=== PATIENT | female | born 1995 | race African-American/Black ===

== ENCOUNTER 2016-11-07 23:54 | Emergency (ER) | payer MEDICAID ==
[~2016-11-07] VITALS: Ht 157.5 cm; Wt 50.0 kg
[2016-11-08 00:45] VITALS: BP 127/79
[2016-11-08] MEDS ORDERED: IBUPROFEN 600MG TABLET PO ONE (00:45)
== END 2016-11-08 00:52 | disposition home or self-care (01) ==
LOC: ER 23:55
DX: H66.91 Otitis media, unspecified, right ear (principal)
CPT/HCPCS: 99283; Z7610

== ENCOUNTER 2017-04-19 18:17 | Emergency (ER) | payer MEDICAID ==
[~2017-04-19] VITALS: Ht 157.5 cm; Wt 50.0 kg
[2017-04-19 22:28] VITALS: BP 128/83
== END 2017-04-20 | disposition left against medical advice (07) ==
LOC: ER 18:17
DX: Z53.21 Procedure and treatment not carried out due to patient leaving prior to being seen by health care provider (principal)
CPT/HCPCS: 81025

== ENCOUNTER 2018-10-03 16:33 | Emergency (ER) | payer OTHER ==
[~2018-10-03] VITALS: Ht 154.9 cm; Wt 53.0 kg
[~2018-10-03 16:33] MED LIST: ONDA4TAB5 PO
[2018-10-03] MEDS ORDERED: SODIUM CHLORIDE 0.9% 1,000 ML IV ONE (21:16)
[2018-10-03] MEDS ORDERED: ONDANSETRON HCL 4MG/2ML INJ IV STA (21:16)
[2018-10-03 22:07] LABS: CLARITY URINE CLEAR (CLEAR); COLOR URINE DARK YELLOW (YELLOW); KETONES URINE 4+ (NEGATIVE); LEUKOCYTE ESTERASE URINE TRACE (NEGATIVE); NITRITE URINE NEGATIVE (NEGATIVE); OCCULT BLOOD URINE 1+ (NEGATIVE); PH URINE 6.5 (4.5-8.0); PROTEIN URINE TRACE (NEGATIVE); SPECIFIC GRAVITY URINE 1.027 (1.005-1.030)
[2018-10-03 22:51] LABS: EOSINOPHILS % 0.3 % (0.0-5.0); HEMATOCRIT. 47.4 % (36.0-48.0); HEMOGLOBIN. 16.4 g/dL (12.0-16.0); LYMPHOCYTES % 23.1 % (20.0-50.0); MEAN CORPUSCULAR VOLUME 92.4 fL (81.0-99.0); MEAN PLATELET VOLUME 8.9 fl (7.4-10.4); MONOCYTES % 8.2 % (2.0-8.0); NEUTROPHILS % 67.4 % (40.0-76.0); PLATELET 386 x1000/uL (130-400); RED BLOOD CELL COUNT 5.13 mill/uL (4.2-5.4); RED CELL DISTRIBUTION WIDTH 13.2 % (11.6-14.6)
[2018-10-03 22:54] LABS: CHLORIDE 100 mEq/L (98-107)
[2018-10-03] MEDS ORDERED: CEFTRIAXONE 1 G PREMIX 50 ML IV SCH (23:00)
[2018-10-03 23:13] LABS: HCG SCREEN NEGATIVE
[2018-10-03] MEDS ORDERED: POTASSIUM CHLORIDE 20MEQ TABLET SR PO ONE (23:45)
[2018-10-04 00:27] VITALS: BP 120/77
== END 2018-10-04 00:30 | disposition home or self-care (01) ==
LOC: ER 16:33
DX: N39.0 Urinary tract infection, site not specified (principal); R11.2 Nausea with vomiting, unspecified; E87.6 Hypokalemia; Z90.49 Acquired absence of other specified parts of digestive tract
CPT/HCPCS: 36415; 80053; 81003; 81025; 83690; 84703; 85025; 96361; 96365; 96375; 99283; J0696; J2405; J7030; Z7610

== ENCOUNTER 2019-02-09 17:02 | Emergency (ER) | payer OTHER ==
[~2019-02-09] VITALS: Ht 157.5 cm; Wt 55.0 kg
[2019-02-09 17:08] VITALS: BP 117/73
[2019-02-09 17:57] LABS: CLARITY URINE CLEAR (CLEAR); COLOR URINE YELLOW (YELLOW); KETONES URINE 1+ (NEGATIVE); LEUKOCYTE ESTERASE URINE NEGATIVE (NEGATIVE); NITRITE URINE NEGATIVE (NEGATIVE); OCCULT BLOOD URINE 1+ (NEGATIVE); PROTEIN URINE NEGATIVE (NEGATIVE); SPECIFIC GRAVITY URINE 1.027 (1.005-1.030); UROBILINOGEN URINE 0.2 E.U./dL (0.2-1.0)
== END 2019-02-09 19:05 | disposition home or self-care (01) ==
LOC: ER 17:02
DX: M25.512 Pain in left shoulder (principal); X50.3XXA Overexertion from repetitive movements, initial encounter; Y93.89 Activity, other specified; Y92.9 Unspecified place or not applicable
CPT/HCPCS: 73030; 81025; 99284

== ENCOUNTER 2019-02-12 22:19 | Emergency (ER) | payer OTHER ==
[~2019-02-12] VITALS: Ht 157.5 cm; Wt 54.4 kg
[2019-02-12 22:24] VITALS: BP 113/84
[2019-02-13] MEDS ORDERED: KETOROLAC 60MG/2ML VIAL IM ONE
[2019-02-13] MEDS ORDERED: ACETAMINOPHEN 325MG TABLET PO ONE
== END 2019-02-13 01:32 | disposition home or self-care (01) ==
LOC: ER 22:19
DX: H66.91 Otitis media, unspecified, right ear (principal); R50.9 Fever, unspecified; Z90.49 Acquired absence of other specified parts of digestive tract
CPT/HCPCS: 81025; 96372; 99283; J1885; Z7610

== ENCOUNTER 2019-02-21 14:58 | Emergency (ER) | payer OTHER ==
[~2019-02-21] VITALS: Ht 157.5 cm; Wt 53.0 kg
[2019-02-21 18:27] VITALS: BP 98/55
== END 2019-02-21 18:29 | disposition home or self-care (01) ==
LOC: ER 14:58
DX: L03.012 Cellulitis of left finger (principal); B00.9 Herpesviral infection, unspecified; Z90.49 Acquired absence of other specified parts of digestive tract
CPT/HCPCS: 99283

== ENCOUNTER 2019-12-03 04:19 | Observation (INO) | payer OTHER ==
[~2019-12-03] VITALS: Ht 157.5 cm; Wt 57.2 kg
[2019-12-03] MEDS ORDERED: PREN1TAB78 PO (05:12)
[2019-12-03] MEDS ORDERED: ONDANSETRON HCL 4MG/2ML INJ IV NR (05:45)
[2019-12-03] MEDS: LACTATED RINGERS 1,000 ML IV SCH ×2 (06:02→07:17)
[2019-12-03 06:42] LABS: HEMATOCRIT. 37.7 % (36.0-48.0); MEAN CORPUSCULAR HEMOGLOBIN 32.5 pg (28.0-32.0); MEAN CORPUSCULAR VOLUME 94.2 fL (81.0-99.0); MEAN PLATELET VOLUME 10.1 fl (7.4-10.4); PLATELET 296 x1000/uL (130-400); RED CELL DISTRIBUTION WIDTH 14.1 % (11.6-14.6)
[2019-12-03 06:48] LABS: CLARITY URINE CLOUDY (CLEAR); COLOR URINE DARK YELLOW (YELLOW); KETONES URINE 4+ (NEGATIVE); LEUKOCYTE ESTERASE URINE 1+ (NEGATIVE); NITRITE URINE NEGATIVE (NEGATIVE); OCCULT BLOOD URINE 3+ (NEGATIVE); PH URINE 5.5 (4.5-8.0); PROTEIN URINE 3+ (NEGATIVE); SPECIFIC GRAVITY URINE 1.029 (1.005-1.030)
[2019-12-03 06:49] LABS: CHLORIDE 110 mEq/L (98-107)
[2019-12-03] MEDS ORDERED: BISACODYL 10MG SUPP PR ONE (08:45)
[2019-12-03 11:45] LABS: PLATELET ESTIMATE NORMAL
[2019-12-04] MEDS ORDERED: ONDA4TAB5 MT (00:52)
[2019-12-04] MEDS ORDERED: DOCU-138 MT (00:52)
== END 2019-12-03 14:40 | disposition home or self-care (01) ==
LOC: 8 EST LDRP 04:19
PROVIDERS: ADMIT Obstetrics & Gynecology; ATTEND Obstetrics & Gynecology
DX: O21.2 Late vomiting of pregnancy (principal); O26.893 Other specified pregnancy related conditions, third trimester; K59.00 Constipation, unspecified; Z3A.28 28 weeks gestation of pregnancy
CPT/HCPCS: 36415; 80053; 81003; 85025; 96361; 96374; 99281; G0378; J2405; 96360; J7120

== ENCOUNTER 2019-12-03 22:48 | Observation (INO) | payer OTHER ==
[~2019-12-03] VITALS: Ht 157.5 cm; Wt 57.2 kg
[~2019-12-03 22:48] MED LIST changes: +PREN1TAB78 PO
[2019-12-04] MEDS ORDERED: FAMOTIDINE 20MG/2ML VIAL IV NR (00:15)
[2019-12-04] MEDS ORDERED: ONDANSETRON HCL 4MG/2ML INJ IV NR (00:15)
[2019-12-04] MEDS ORDERED: DOCU-138 MT (00:52)
[2019-12-04] MEDS ORDERED: ONDA4TAB5 MT (00:52)
[2019-12-04] MEDS ORDERED: LACTATED RINGERS 1,000 ML IV SCH (01:00)
== END 2019-12-04 01:30 | disposition home or self-care (01) ==
LOC: ER 22:48 → 8 EST LDRP 22:49
PROVIDERS: ADMIT Obstetrics & Gynecology; ATTEND Obstetrics & Gynecology
DX: O21.2 Late vomiting of pregnancy (principal); Z20.828 Contact with and (suspected) exposure to other viral communicable diseases; O26.893 Other specified pregnancy related conditions, third trimester; R10.9 Unspecified abdominal pain; Z3A.28 28 weeks gestation of pregnancy; Z90.49 Acquired absence of other specified parts of digestive tract
CPT/HCPCS: 87635; 96374; 96375; 99284; G0378; J2405; J3490; 96360; 99281

== ENCOUNTER 2019-12-07 16:02 | Observation (INO) | payer OTHER ==
[~2019-12-07] VITALS: Ht 157.5 cm; Wt 55.8 kg
[~2019-12-07 16:02] MED LIST changes: +DOCU-138 MT; +ONDA4TAB5 MT
[2019-12-07] MEDS ORDERED: LACTATED RINGERS 1,000 ML IV SCH (16:45)
[2019-12-07] MEDS ORDERED: ONDANSETRON HCL 4MG/2ML INJ IV NR (16:45)
== END 2019-12-07 17:55 | disposition home or self-care (01) ==
LOC: 8 EST LDRP 16:02
PROVIDERS: ADMIT Obstetrics & Gynecology; ATTEND Obstetrics & Gynecology
DX: O21.2 Late vomiting of pregnancy (principal); O26.893 Other specified pregnancy related conditions, third trimester; K21.9 Gastro-esophageal reflux disease without esophagitis; R42 Dizziness and giddiness; R10.13 Epigastric pain; Z3A.29 29 weeks gestation of pregnancy
CPT/HCPCS: 96374; 99281; G0378; J2405; 96360

== ENCOUNTER 2019-12-21 14:31 | Observation (INO) | payer OTHER ==
[~2019-12-21 14:31] MED LIST changes: -ONDA4TAB5 PO
[2019-12-21 16:22] LABS: CLARITY URINE TURBID (CLEAR); COLOR URINE ORANGE (YELLOW); KETONES URINE 1+ (NEGATIVE); LEUKOCYTE ESTERASE URINE 1+ (NEGATIVE); NITRITE URINE NEGATIVE (NEGATIVE); OCCULT BLOOD URINE 3+ (NEGATIVE); PH URINE 8.5 (4.5-8.0); PROTEIN URINE 1+ (NEGATIVE); SPECIFIC GRAVITY URINE 1.019 (1.005-1.030)
== END 2019-12-21 17:20 | disposition home or self-care (01) ==
LOC: 8 EST LDRP 14:31
PROVIDERS: ADMIT Obstetrics & Gynecology; ATTEND Obstetrics & Gynecology
DX: O62.9 Abnormality of forces of labor, unspecified (principal); O46.93 Antepartum hemorrhage, unspecified, third trimester; O21.2 Late vomiting of pregnancy; O26.893 Other specified pregnancy related conditions, third trimester; R10.9 Unspecified abdominal pain; Z3A.31 31 weeks gestation of pregnancy
CPT/HCPCS: 81003; 82731; 99281; G0378; 96360

== ENCOUNTER 2019-12-26 13:22 | Observation (INO) | payer OTHER ==
[~2019-12-26] VITALS: Ht 157.5 cm; Wt 57.2 kg
[2019-12-26] MEDS ORDERED: ACETAMINOPHEN WITH CODEINE 300/30MG TABLET PO SCH ×2 (14:00→22:33)
[2019-12-26] MEDS: LACTATED RINGERS 1,000 ML IV SCH ×2 (14:37→17:26)
[2019-12-26] MEDS: ONDANSETRON HCL 4MG/2ML INJ IV PRN (14:37)
[2019-12-26 14:58] LABS: CHLORIDE 105 mEq/L (98-107)
[2019-12-26 15:05] LABS: HEMATOCRIT. 35.8 % (36.0-48.0); HEMOGLOBIN. 12.2 g/dL (12.0-16.0); MEAN CORPUSCULAR HEMOGLOBIN 32.4 pg (28.0-32.0); MEAN CORPUSCULAR VOLUME 95.3 fL (81.0-99.0); PLATELET 311 x1000/uL (130-400); RED BLOOD CELL COUNT 3.76 mill/uL (4.2-5.4); RED CELL DISTRIBUTION WIDTH 13.8 % (11.6-14.6)
[2019-12-26 17:39] LABS: PLATELET ESTIMATE NORMAL
[2019-12-26] MEDS ORDERED: BUTORPHANOL TARTRATE 2 MG/ML VIAL IM PRN (18:30)
[2019-12-26 19:58] LABS: CLARITY URINE CLEAR (CLEAR); COLOR URINE YELLOW (YELLOW); KETONES URINE 4+ (NEGATIVE); LEUKOCYTE ESTERASE URINE 1+ (NEGATIVE); NITRITE URINE NEGATIVE (NEGATIVE); OCCULT BLOOD URINE TRACE (NEGATIVE); PH URINE 6.5 (4.5-8.0); PROTEIN URINE 1+ (NEGATIVE); SPECIFIC GRAVITY URINE 1.026 (1.005-1.030)
[2019-12-26] MEDS ORDERED: FOLIC ACID 1 MG, MVI, ADULT NO.1 10 ML in DEXTROSE 5% WATER 1,000 ML IV NR ×3 (20:00)
[2019-12-26] MEDS ORDERED: THIAMINE HCL 100MG TABLET PO NR (20:00)
[2019-12-26 22:40] VITALS: BP 109/55
[2019-12-27] MEDS: LACTATED RINGERS 1,000 ML IV SCH (03:49)
[2019-12-27] MEDS: ONDANSETRON HCL 4MG/2ML INJ IV PRN (07:55)
== END 2019-12-27 09:40 | disposition home or self-care (01) ==
LOC: 8 EST LDRP 13:22
PROVIDERS: ADMIT Obstetrics & Gynecology; ATTEND Obstetrics & Gynecology
DX: O62.9 Abnormality of forces of labor, unspecified (principal); O36.8330 Maternal care for abnormalities of the fetal heart rate or rhythm, third trimester, not applicable or unspecified; O99.89 Other specified diseases and conditions complicating pregnancy, childbirth and the puerperium; M54.9 Dorsalgia, unspecified; O26.893 Other specified pregnancy related conditions, third trimester; R11.0 Nausea; Z3A.32 32 weeks gestation of pregnancy
CPT/HCPCS: 36415; 76770; 80053; 81003; 85025; 96361; 96365; 96366; 96372; 96375; 96376; 99281; G0378; J0595; J2405; J3490; J7070; 96360

== ENCOUNTER 2020-02-20 12:33 | Inpatient (IN) | payer OTHER ==
[~2020-02-20] VITALS: Ht 165.1 cm; Wt 82.6 kg
[2020-02-20] MEDS ORDERED: DEXT 5%/LR + PITOCIN 20UNITS/L 1,000 ML IV SCH (14:29)
[2020-02-20] MEDS ORDERED: METHYLERGONOVINE MALEATE 0.2 MG/ML IM PRN (14:30)
[2020-02-20] MEDS ORDERED: CARBOPROST TROMETHAMINE 250 MCG/ML AMPUL IM PRN (14:30)
[2020-02-20] MEDS ORDERED: NALOXONE HCL 0.4 MG/ML 1ML VIAL IM PRN (14:30)
[2020-02-20] MEDS ORDERED: LIDOCAINE HCL 1% 20ML VIAL (Pyxis) INJ INFIL SCH (14:30)
[2020-02-20] MEDS: LACTATED RINGERS 1,000 ML IV SCH (14:45)
[2020-02-20 15:16] LABS: CLARITY URINE CLOUDY (CLEAR); COLOR URINE YELLOW (YELLOW); KETONES URINE NEGATIVE (NEGATIVE); LEUKOCYTE ESTERASE URINE NEGATIVE (NEGATIVE); NITRITE URINE NEGATIVE (NEGATIVE); OCCULT BLOOD URINE NEGATIVE (NEGATIVE); PH URINE 7.5 (4.5-8.0); PROTEIN URINE NEGATIVE (NEGATIVE); SPECIFIC GRAVITY URINE 1.016 (1.005-1.030)
[2020-02-20 15:16] LABS: BASOPHILS % 0.2 % (0.0-2.0); EOSINOPHILS % 0.2 % (0.0-5.0); HEMATOCRIT. 37.3 % (36.0-48.0); HEMOGLOBIN. 12.8 g/dL (12.0-16.0); LYMPHOCYTES % 11.5 % (20.0-50.0); MEAN CORPUSCULAR HEMOGLOBIN 32.6 pg (28.0-32.0); MEAN CORPUSCULAR VOLUME 95.1 fL (81.0-99.0); MEAN PLATELET VOLUME 9.6 fl (7.4-10.4); MONOCYTES % 7.4 % (2.0-8.0); NEUTROPHILS % 80.7 % (40.0-76.0); PLATELET 277 x1000/uL (130-400); RED BLOOD CELL COUNT 3.92 mill/uL (4.2-5.4); RED CELL DISTRIBUTION WIDTH 14.6 % (11.6-14.6)
[2020-02-20 15:27] LABS: INR 0.9; PARTIAL THROMBOPLASTIN TIME 26.1 sec (23.4-31.0)
[2020-02-20 15:51] LABS: *AMPHETAMINES SCREEN URINE NEGATIVE (NEGATIVE)
[2020-02-20 15:52] LABS: *BARBITURATES SCREEN URINE NEGATIVE (NEGATIVE); *BENZODIAZEPINES SCREEN URINE NEGATIVE (NEGATIVE); *COCAINE SCREEN URINE NEGATIVE (NEGATIVE); METHADONE URINE SCREEN NEGATIVE (NEGATIVE); OPIATES URINE SCREEN NEGATIVE (NEGATIVE)
[2020-02-20 15:54] LABS: CANNABINOID URINE SCREEN NEGATIVE (NEGATIVE); PHENCYCLIDINE URINE SCREEN NEGATIVE (NEGATIVE)
[2020-02-20 16:23] LABS: HEPATITIS B SURFACE ANTIGEN NEGATIVE
[2020-02-20] MEDS ORDERED: ONDANSETRON HCL 4MG/2ML INJ IM NR (22:41)
[2020-02-20] MEDS: BUTORPHANOL TARTRATE 2 MG/ML VIAL IV PRN (22:41)
[2020-02-21] MEDS: BUTORPHANOL TARTRATE 2 MG/ML VIAL IV PRN ×2 (01:24→03:29)
[2020-02-21] MEDS: LACTATED RINGERS 1,000 ML IV SCH ×2 (03:30→09:00)
[2020-02-21] MEDS ORDERED: ROPIVACAINE HCL/PF EPIDURAL 200 ML EPI SCH (06:00)
[2020-02-21] MEDS ORDERED: LIDOCAINE HCL 2%/EPINEPHRINE 1:100,000 20 ML VIAL INFIL ONE (11:26)
[2020-02-21] MEDS ORDERED: FENTANYL CITRATE/PF 50MCG/ML 2ML VIAL ONE ×2 (17:19→21:32)
[2020-02-21] MEDS ORDERED: ROPIVACAINE HCL/PF EPIDURAL 200 ML EPI ONE (17:51)
[2020-02-21] MEDS ORDERED: ACETAMINOPHEN 325MG TABLET PO SCH (20:45)
[2020-02-21] MEDS ORDERED: GENTAMICIN 120MG PREMIX 100 ML IV SCH (21:00)
[2020-02-21] MEDS: AMPICILLIN 2,000 MG in SODIUM CHLORIDE 0.9% 100 ML IV SCH (21:12)
[2020-02-21 21:38] LABS: CHLORIDE 109 mEq/L (98-107)
[2020-02-21] MEDS ORDERED: CLINDAMYCIN 900 MG PREMIX 50 ML IV SCH (22:00)
[2020-02-22] MEDS ORDERED: FENTANYL CITRATE/PF 50MCG/ML 2ML VIAL ONE (01:14)
[2020-02-22] MEDS: AMPICILLIN 2,000 MG in SODIUM CHLORIDE 0.9% 100 ML IV SCH (03:08)
[2020-02-22] MEDS ORDERED: DEXT 5%/LR + PITOCIN 20UNITS/L 1,000 ML IV SCH (06:10)
[2020-02-22] MEDS ORDERED: HEMORRHOIDAL SUPP PR PRN (06:15)
[2020-02-22] MEDS ORDERED: GLYCERIN/WITCH HAZEL LEAF MEDICATED PAD TOP PRN (06:15)
[2020-02-22] MEDS ORDERED: BENZOCAINE/LANOLIN/ALOE VERA SPRAY TOP PRN (06:15)
[2020-02-22] MEDS ORDERED: ACETAMINOPHEN WITH CODEINE 300/30MG TABLET PO PRN (06:15)
[2020-02-22] MEDS ORDERED: BISACODYL 10MG SUPP PR PRN (06:15)
[2020-02-22] MEDS ORDERED: METHYLERGONOVINE MALEATE 0.2 MG/ML IM PRN (06:15)
[2020-02-22] MEDS ORDERED: IBUPROFEN 400MG TABLET PO PRN (06:15)
[2020-02-22] MEDS ORDERED: IBUPROFEN 800MG TABLET PO PRN (06:15)
[2020-02-22] MEDS ORDERED: GENTAMICIN 120MG PREMIX 100 ML IV SCH (08:00)
[2020-02-22 08:25] VITALS: BP 110/69
[2020-02-22 09:00] VITALS: BP 110/65
[2020-02-22] MEDS: PRENATAL VIT/FE FUMARATE/FA TABLET PO SCH (13:18)
[2020-02-22] MEDS: SIMETHICONE 80MG TABLET CHEW PO SCH ×3 (13:18→20:36)
[2020-02-22] MEDS: MAGNESIUM/ALUMINUM HYDROXIDE/SIMETHICONE 30ML UDC PO SCH ×2 (13:20→20:35)
[2020-02-22 16:05] VITALS: BP 115/64
[2020-02-22 19:18] VITALS: BP 107/69
[2020-02-22] MEDS ORDERED: DOCUSATE SODIUM 100MG CAPSULE PO SCH (21:00)
[2020-02-23] VITALS: BP 108/70
[2020-02-23 07:13] LABS: BASOPHILS % 0.4 % (0.0-2.0); EOSINOPHILS % 0.4 % (0.0-5.0); HEMATOCRIT. 31.6 % (36.0-48.0); HEMOGLOBIN. 10.7 g/dL (12.0-16.0); LYMPHOCYTES % 8.5 % (20.0-50.0); MEAN CORPUSCULAR HEMOGLOBIN 32.7 pg (28.0-32.0); MEAN CORPUSCULAR VOLUME 96.7 fL (81.0-99.0); MEAN PLATELET VOLUME 10.1 fl (7.4-10.4); MONOCYTES % 7.2 % (2.0-8.0); NEUTROPHILS % 83.5 % (40.0-76.0); PLATELET 195 x1000/uL (130-400); RED BLOOD CELL COUNT 3.27 mill/uL (4.2-5.4); RED CELL DISTRIBUTION WIDTH 14.8 % (11.6-14.6)
[2020-02-23] MEDS ORDERED: FERROUS SULFATE 325MG TABLET PO SCH (07:30)
[2020-02-23 07:54] VITALS: BP 108/60
[2020-02-23] MEDS: PRENATAL VIT/FE FUMARATE/FA TABLET PO SCH (08:40)
[2020-02-23] MEDS: MAGNESIUM/ALUMINUM HYDROXIDE/SIMETHICONE 30ML UDC PO SCH (08:40)
[2020-04-05] MEDS ORDERED: ONDA4TAB5 MT (16:40)
[2020-04-05] MEDS ORDERED: FAMO-135 PO (16:40)
[2020-04-05] MEDS ORDERED: SULF1TAB48 MT (16:40)
== END 2020-02-23 12:00 | disposition home or self-care (01) | DRG 560 ==
LOC: INTOOBSV 12:33 → OBSVTOIN 12:33 → 8 EST LDRP 12:33 → 8EST 02-22 08:23
PROVIDERS: ADMIT Obstetrics & Gynecology; ATTEND Obstetrics & Gynecology
PROC: 10E0XZZ Delivery of Products of Conception, External Approach (ICD-10-PCS; principal; 2020-02-22)
PROC: 10907ZC Drainage of Amniotic Fluid, Therapeutic from Products of Conception, Via Natural or Artificial Opening (ICD-10-PCS; 2020-02-22)
PROC: 3E0R3BZ Introduction of Anesthetic Agent into Spinal Canal, Percutaneous Approach (ICD-10-PCS; 2020-02-22)
PROC: 00HU33Z Insertion of Infusion Device into Spinal Canal, Percutaneous Approach (ICD-10-PCS; 2020-02-22)
PROC: 0KQM0ZZ Repair Perineum Muscle, Open Approach (ICD-10-PCS; 2020-02-22)
DX: O69.81X0 Labor and delivery complicated by cord around neck, without compression, not applicable or unspecified (principal); Z37.0 Single live birth; Z3A.39 39 weeks gestation of pregnancy; O70.1 Second degree perineal laceration during delivery; O99.02 Anemia complicating childbirth; O99.12 Other diseases of the blood and blood-forming organs and certain disorders involving the immune mechanism complicating childbirth
CPT/HCPCS: 36415; 80048; 80305; 81003; 85025; 86592; 86703; 86762; 86850; 86900; 87340; 99281; J0290; J0595; J1580; J2405; J2590; J2795; J3010; J3490; J7050; J7120

== ENCOUNTER 2020-04-02 02:49 | Emergency (ER) | payer OTHER ==
[~2020-04-02] VITALS: Ht 157.5 cm; Wt 54.0 kg
[2020-04-02] MEDS ORDERED: MAGNESIUM/ALUMINUM HYDROXIDE/SIMETHICONE 30ML UDC PO SCH (03:48)
[2020-04-02] MEDS ORDERED: FAMOTIDINE 20MG/2ML VIAL IV SCH (03:48)
[2020-04-02] MEDS ORDERED: SODIUM CHLORIDE 0.9% 1,000 ML IV ONE (03:48)
[2020-04-02] MEDS ORDERED: VISCOUS LIDOCAINE 2% 15 ML UDC PO SCH (03:48)
[2020-04-02] MEDS ORDERED: ONDANSETRON HCL 4MG/2ML INJ IV SCH (03:48)
[2020-04-02] MEDS ORDERED: METOCLOPRAMIDE HCL 10MG/2ML VIAL IV SCH (03:48)
[2020-04-02 04:08] LABS: CHLORIDE 105 mEq/L (98-107)
[2020-04-02 04:10] LABS: BASOPHILS % 0.3 % (0.0-2.0); HEMATOCRIT. 43.5 % (36.0-48.0); HEMOGLOBIN. 15.1 g/dL (12.0-16.0); LYMPHOCYTES % 9.1 % (20.0-50.0); MEAN CORPUSCULAR HEMOGLOBIN 32.2 pg (28.0-32.0); MEAN CORPUSCULAR VOLUME 92.8 fL (81.0-99.0); MEAN PLATELET VOLUME 9.3 fl (7.4-10.4); MONOCYTES % 2.1 % (2.0-8.0); NEUTROPHILS % 88.5 % (40.0-76.0); PLATELET 317 x1000/uL (130-400); RED BLOOD CELL COUNT 4.68 mill/uL (4.2-5.4); RED CELL DISTRIBUTION WIDTH 13.7 % (11.6-14.6)
[2020-04-02 04:12] LABS: ETHANOL BLOOD < 10 mg/dL
[2020-04-02 04:26] LABS: CLARITY URINE CLOUDY (CLEAR); COLOR URINE YELLOW (YELLOW); KETONES URINE 4+ (NEGATIVE); LEUKOCYTE ESTERASE URINE 1+ (NEGATIVE); NITRITE URINE NEGATIVE (NEGATIVE); OCCULT BLOOD URINE NEGATIVE (NEGATIVE); PH URINE 8.5 (4.5-8.0); PROTEIN URINE 1+ (NEGATIVE); SPECIFIC GRAVITY URINE 1.041 (1.005-1.030)
[2020-04-02 05:06] LABS: METHADONE URINE SCREEN NEGATIVE (NEGATIVE); OPIATES URINE SCREEN NEGATIVE (NEGATIVE)
[2020-04-02 05:07] LABS: *AMPHETAMINES SCREEN URINE NEGATIVE (NEGATIVE); *BARBITURATES SCREEN URINE NEGATIVE (NEGATIVE); *BENZODIAZEPINES SCREEN URINE NEGATIVE (NEGATIVE); *COCAINE SCREEN URINE NEGATIVE (NEGATIVE); CANNABINOID URINE SCREEN NEGATIVE (NEGATIVE); PHENCYCLIDINE URINE SCREEN NEGATIVE (NEGATIVE)
[2020-04-02] MEDS ORDERED: LIDOCAINE HCL 1% 20ML VIAL (Pyxis) INJ INFIL SCH (05:30)
[2020-04-02] MEDS ORDERED: CEFTRIAXONE SODIUM 1 G/VIAL IM SCH (05:30)
[2020-04-02 06:09] VITALS: BP 130/78
== END 2020-04-02 06:13 | disposition left against medical advice (07) ==
LOC: ER 02:49
DX: N39.0 Urinary tract infection, site not specified (principal); R11.2 Nausea with vomiting, unspecified; Z79.899 Other long term (current) drug therapy
CPT/HCPCS: 36415; 80053; 80305; 80320; 81003; 81025; 83605; 83690; 85025; 85610; 96361; 96372; 96374; 96375; 99284; J0696; J2405; J2765; J3490; G0480

== ENCOUNTER 2020-04-09 08:47 | Emergency (ER) | payer OTHER ==
[~2020-04-09] VITALS: Ht 157.5 cm; Wt 54.0 kg
[~2020-04-09 08:47] MED LIST changes: +FAMO-135 PO; +SULF1TAB48 MT
[2020-04-09] MEDS ORDERED: SODIUM CHLORIDE 0.9% 1,000 ML IV ONE (09:32)
[2020-04-09 09:55] LABS: BASOPHILS % 0.8 % (0.0-2.0); EOSINOPHILS % 1.4 % (0.0-5.0); HEMATOCRIT. 47.8 % (36.0-48.0); HEMOGLOBIN. 16.4 g/dL (12.0-16.0); LYMPHOCYTES % 28.5 % (20.0-50.0); MEAN CORPUSCULAR HEMOGLOBIN 31.7 pg (28.0-32.0); MEAN CORPUSCULAR VOLUME 92.4 fL (81.0-99.0); MEAN PLATELET VOLUME 7.7 fl (7.4-10.4); MONOCYTES % 8.2 % (2.0-8.0); NEUTROPHILS % 61.1 % (40.0-76.0); PLATELET 378 x1000/uL (130-400); RED BLOOD CELL COUNT 5.18 mill/uL (4.2-5.4); RED CELL DISTRIBUTION WIDTH 13.6 % (11.6-14.6)
[2020-04-09 10:01] LABS: CHLORIDE 104 mEq/L (98-107)
[2020-04-09 10:04] LABS: INR 1.1; PROTHROMBIN TIME 11.9 sec (9.6-11.0)
[2020-04-09 10:05] LABS: ETHANOL BLOOD < 10 mg/dL
[2020-04-09 10:17] LABS: HCG SCREEN NEGATIVE
[2020-04-09 10:26] LABS: CLARITY URINE CLOUDY (CLEAR); KETONES URINE 2+ (NEGATIVE); LEUKOCYTE ESTERASE URINE TRACE (NEGATIVE); NITRITE URINE NEGATIVE (NEGATIVE); OCCULT BLOOD URINE 3+ (NEGATIVE); PROTEIN URINE TRACE (NEGATIVE); SPECIFIC GRAVITY URINE 1.027 (1.005-1.030)
[2020-04-09 10:42] LABS: COLOR URINE BLOODY (YELLOW)
[2020-04-09 10:51] LABS: *BARBITURATES SCREEN URINE NEGATIVE (NEGATIVE); PHENCYCLIDINE URINE SCREEN NEGATIVE (NEGATIVE)
[2020-04-09 10:52] LABS: *AMPHETAMINES SCREEN URINE NEGATIVE (NEGATIVE); *BENZODIAZEPINES SCREEN URINE NEGATIVE (NEGATIVE); *COCAINE SCREEN URINE NEGATIVE (NEGATIVE); CANNABINOID URINE SCREEN NEGATIVE (NEGATIVE); METHADONE URINE SCREEN NEGATIVE (NEGATIVE); OPIATES URINE SCREEN NEGATIVE (NEGATIVE)
[2020-04-09 11:30] VITALS: BP 108/68
== END 2020-04-09 13:10 | disposition home or self-care (01) ==
LOC: ER 08:47
DX: E86.0 Dehydration (principal); N39.0 Urinary tract infection, site not specified; Z88.1 Allergy status to other antibiotic agents; Z79.899 Other long term (current) drug therapy
CPT/HCPCS: 36415; 80053; 80305; 80320; 81003; 81025; 83690; 84484; 84703; 85025; 85610; 93005; 96360; 96361; 99284; J7030; G0480

== ENCOUNTER 2020-05-09 16:12 | Emergency (ER) | payer OTHER ==
[~2020-05-09] VITALS: Ht 157.5 cm; Wt 50.0 kg
[2020-05-09] MEDS ORDERED: SODIUM CHLORIDE 0.9% 1,000 ML IV ONE (18:07)
[2020-05-09] MEDS ORDERED: ONDANSETRON HCL 4MG/2ML INJ IV STA (18:07)
[2020-05-09 18:23] LABS: BASOPHILS % 0.6 % (0.0-2.0); EOSINOPHILS % 0.1 % (0.0-5.0); HEMATOCRIT. 45.3 % (36.0-48.0); HEMOGLOBIN. 15.9 g/dL (12.0-16.0); LYMPHOCYTES % 22.3 % (20.0-50.0); MEAN CORPUSCULAR HEMOGLOBIN 31.8 pg (28.0-32.0); MEAN CORPUSCULAR VOLUME 90.9 fL (81.0-99.0); MEAN PLATELET VOLUME 9.5 fl (7.4-10.4); MONOCYTES % 9.4 % (2.0-8.0); NEUTROPHILS % 67.6 % (40.0-76.0); PLATELET 526 x1000/uL (130-400); RED BLOOD CELL COUNT 4.99 mill/uL (4.2-5.4); RED CELL DISTRIBUTION WIDTH 13.5 % (11.6-14.6)
[2020-05-09 18:35] LABS: HCG SCREEN NEGATIVE
[2020-05-09 19:19] LABS: CHLORIDE 107 mEq/L (98-107)
[2020-05-09 19:30] LABS: CLARITY URINE CLOUDY (CLEAR); COLOR URINE DARK YELLOW (YELLOW); KETONES URINE 4+ (NEGATIVE); LEUKOCYTE ESTERASE URINE 1+ (NEGATIVE); NITRITE URINE NEGATIVE (NEGATIVE); OCCULT BLOOD URINE 2+ (NEGATIVE); PROTEIN URINE 1+ (NEGATIVE); SPECIFIC GRAVITY URINE 1.034 (1.005-1.030)
[2020-05-09] MEDS ORDERED: POTASSIUM CHLORIDE 20MEQ TABLET SR PO ONE (19:30)
[2020-05-09 19:41] LABS: *AMPHETAMINES SCREEN URINE NEGATIVE (NEGATIVE); *BARBITURATES SCREEN URINE NEGATIVE (NEGATIVE); CANNABINOID URINE SCREEN NEGATIVE (NEGATIVE); METHADONE URINE SCREEN NEGATIVE (NEGATIVE); OPIATES URINE SCREEN NEGATIVE (NEGATIVE); PHENCYCLIDINE URINE SCREEN NEGATIVE (NEGATIVE)
[2020-05-09 19:42] LABS: *BENZODIAZEPINES SCREEN URINE NEGATIVE (NEGATIVE); *COCAINE SCREEN URINE NEGATIVE (NEGATIVE)
[2020-05-09] MEDS ORDERED: ONDANSETRON HCL 4MG/2ML INJ IV ONE (20:15)
[2020-05-09] MEDS ORDERED: CEFTRIAXONE 1 G PREMIX 50 ML IV ONE (20:15)
[2020-05-09 21:21] VITALS: BP 110/72
== END 2020-05-09 21:25 | disposition home or self-care (01) ==
LOC: ER 16:30
DX: R11.2 Nausea with vomiting, unspecified (principal); N39.0 Urinary tract infection, site not specified; E87.6 Hypokalemia; Z88.3 Allergy status to other anti-infective agents
CPT/HCPCS: 36415; 80053; 80305; 81003; 83735; 84703; 85025; 93005; 96361; 96365; 96375; 99284; J0696; J2405; J7030